=== PATIENT | female | born 1965 | race Two or more races ===

== ENCOUNTER 2017-10-25 07:34 | Day surgery (SDC) | payer OTHER ==
[2017-10-25] MEDS ORDERED: PROPOFOL 60 ML (10:23)
[2017-10-25] MEDS ORDERED: LIDOCAINE 2% (SDV) 5 ML INJ (10:23)
== END 2017-10-25 12:07 | disposition home or self-care (01) ==
LOC: GIL 07:34
DX: Z12.11 Encounter for screening for malignant neoplasm of colon (principal); D12.6 Benign neoplasm of colon, unspecified
CPT/HCPCS: 45380; 88305